=== PATIENT | female | born 1965 | race Caucasian/White ===

== ENCOUNTER 2016-06-13 09:51 | Day surgery (SDC) | payer BC ==
--- NOTE | 2016-06-07 18:24 | HP ---
HISTORY AND PHYSICAL: DATE OF ADMISSION/SURGERY: 06/13/16 DATE OF OFFICE VISIT: 06/07/16 SURGEON: Unique Carrington MD PROCEDURE: Left knee arthroscopy with partial medial meniscectomy, possible chondroplasty, and possible synovectomy. CHIEF COMPLAINT: Left knee pain. HISTORY OF PRESENT ILLNESS: Ms. Hubbard is a 50-year-old female with complaints of left knee pain. She has failed conservative management and has elected to proceed with left knee arthroscopy which is scheduled for 06/13/16. PAST MEDICAL HISTORY: Asthma, hypertension, sleep apnea, umbilical hernia. PAST SURGICAL HISTORY: Left oophorectomy, hysterectomy. CURRENT MEDICATIONS: 1. [place]. 2. Triamterene/hydrochlorothiazide. 3. Proventil. 4. Mag oxide. 5. Thyroid Support. 6. Turmeric. 7. Hair, skin, and nails. ALLERGIES: To EGGS. FAMILY HISTORY: Noncontributory. 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 She does not smoke, use drugs or alcohol. REVIEW OF SYSTEMS: A complete 14-point review of systems was reviewed with the patient. All was negative or noncontributory. She denies history of DVT, PE, anesthesia problems, or bleeding disorders. PHYSICAL EXAMINATION GENERAL: She is obese, in no acute distress. VITAL SIGNS: She stands 5 feet 3 inches tall, weighs 289 pounds, her blood pressure is 129/76, her heart rate is 64. HEENT: Normocephalic, atraumatic. NECK: Supple. No palpable lymph nodes. Trachea is midline. PULMONARY: Clear to auscultation bilaterally. No wheezes, rhonchi, or rales. CARDIO: Regular rate and rhythm. Strong S1, S2. No murmurs, gallops, or rubs. ABDOMEN: Soft, nontender, nondistended. NEUROLOGICAL: She is alert and oriented x3. Cranial nerves II through XII are intact. MUSCULOSKELETAL: Left knee: She walks with slightly antalgic-type gait favoring her left knee. The skin is intact. She has mild tenderness over the medial joint line. There is a mild effusion. She has intact lower extremity strength of 5/5, intact sensation, and 2+ dorsalis pedis pulses. ASSESSMENT AND PLAN: Ms. Hubbard is a 50-year-old female with complaints of left knee pain. She has failed conservative management and has elected to proceed with left knee arthroscopy with partial medial meniscectomy, possible chondroplasty, and possible synovectomy. The surgery is scheduled for 06/13/[address] Carrington. Percocet was sent to her pharmacy for postoperative pain control and Dr. Carrington would like to see her back in clinic in 10 to 14 days for a followup visit. DERECK DALE [id number]/[facility] #: [id number] MTDD
[~2016-06-13 09:51] MED LIST: Buffered Lidocaine 1% SYR 3ML* 3 ML/SYR SYRINGE INTRADERM ONE; Dexamethasone IV* 4 MG/ML 1 ML (4 MG) IV SLOW PU ONE; Famotidine IV* 10 MG/ML 2 ML (20 mg) IV ONE
[2016-06-13] MEDS ORDERED: ceFAZolin 2 GM PREMIX (*) 2 GM/50 ML BAG IVPB ONE (10:10)
[2016-06-13] MEDS ORDERED: ceFAZolin 1 GM in Dextrose (*) 1 GM/50 ML BAG IVPB ONE (10:10)
[2016-06-13] MEDS ORDERED: Famotidine IV* 10 MG/ML 2 ML (20 mg) ONE (10:10)
[2016-06-13] MEDS ORDERED: Dexamethasone IV* 4 MG/ML 1 ML (4 MG) ONE (10:10)
[2016-06-13] MEDS ORDERED: fentaNYL* 50 MCG/ML 2 ML VIAL (100 MCG VIAL) ONE (10:23)
[2016-06-13] MEDS ORDERED: Midazolam* 1 MG/ML 5 ML VIAL (5 MG) ONE (10:24)
[2016-06-13] MEDS ORDERED: methylPREDNISolone ACETATE 80* 80 MG/ML 1 ML VIAL ONE (10:25)
[2016-06-13] MEDS ORDERED: Bupivacaine 0.5% SDV PF* 30 ML VIAL ONE (10:25)
[2016-06-13] MEDS ORDERED: EPINEPHrine AMP 1 MG/ML ONE (10:25)
[2016-06-13] MEDS ORDERED: Lidocaine 2% PF * 5 ML VIAL ONE (10:28)
[2016-06-13] MEDS ORDERED: Propofol* 10 MG/ML 20 ML BTL IV PUSH ONE (10:28)
[2016-06-13] MEDS ORDERED: Ondansetron INJ* 2 MG/ML VIAL ONE (10:28)
[2016-06-13] MEDS ORDERED: Ketorolac INJ* 30 MG/ML 1 ML VIAL ONE (10:28)
[2016-06-13] MEDS ORDERED: HYDROmorphone INJ* 1 MG/ML CARPUJECT SYRINGE IV PRN (11:37)
[2016-06-13] MEDS ORDERED: PROCHLORPERAZINE INJ 5 MG/ML 2 ML VIAL IV PRN (11:37)
[2016-06-13] MEDS ORDERED: Ondansetron INJ* 2 MG/ML VIAL IV PRN (11:37)
[2016-06-13] MEDS ORDERED: DiMENhydriNATE IV* 50 MG/ML VIAL IV PUSH PRN (11:37)
[2016-06-13] MEDS ORDERED: Scopolamine 1.5 mg* PATCH TRANSDERM PRN (11:37)
[2016-06-13] MEDS ORDERED: fentaNYL* 50 MCG/ML 5 ML VIAL (250 MCG VIAL) ONE (13:25)
[2016-06-13] MEDS: fentaNYL* 50 MCG/ML 2 ML VIAL (100 MCG VIAL) IV PRN ×2 (13:28→13:44)
[2016-06-13] MEDS ORDERED: oxyCODONE/Acetamin 5/325 MG* TAB ONE (14:09)
[2016-06-13 14:31] VITALS: BP 139/82
--- NOTE | 2016-06-14 20:05 | OP ---
DATE OF OPERATION: 06/13/16 [facility] DATE OF : 69 ATTENDING SURGEON: Unique Carrington MD QUARTER SUPERVISOR: DERECK Soto ANESTHESIOLOGIST: Dr. Vipul Brown. ANESTHESIA: General. PRE-OP DIAGNOSES: Left knee medial meniscal tear, osteoarthritis. POST-OP DIAGNOSES: Left knee radial tear of the medial meniscus, moderate-to- severe arthritis of the medial and patellofemoral compartments. OPERATIVE PROCEDURE: Left knee arthroscopy with partial medial meniscectomy and medial chondroplasty. COMPLICATIONS: None. SPECIMEN: None. EBL: Less than 25 cc. BRIEF HISTORY/INDICATION: Ms. Hubbard is a 50-year-old female who injured her left knee around Thanksgiving with a twisting injury. She went on to fail conservative treatment with antiinflammatories, pain medication, physical therapy, brace wear, and intraarticular injection. Physical exam findings and history were consistent with a meniscal tear and a medial meniscal tear was confirmed on MRI. Due to continued pain and decreased quality of life, the patient elected to undergo left knee arthroscopy with partial medial meniscectomy. Informed consent was obtained from the patient. She understood the risks of the procedure included but were not limited to bleeding, infection , damage to nearby structures, continued pain, need for further surgery, stroke , heart attack, blood clot, and . She wished to proceed. INTRAOPERATIVE FINDINGS: Intraoperatively, the patient was noted to have a radial/complex tear of the mid portion of the posteromedial meniscus. This involved mainly the white-red zone with some involvement of the red-red as well. The patient had grade 3 and 4 Outerbridge cartilage changes of the medial femoral condyle with exposed subchondral bone along the weightbearing portion. She had grade 2 and 3 Outerbridge cartilage changes of the patellar cartilage with fissures, but no large amount of exposed subchondral bone. DESCRIPTION OF PROCEDURE: Ms. Hubbard was identified in the preanesthesia unit. Her left lower extremity was marked as the correct operative site. Informed consent was signed and placed in the chart. The patient was taken to the operating room and placed under general anesthesia without difficulty. Left lower extremity was prepped and draped in the usual sterile fashion. Preop time -out was made to correctly identify the patient's side and site. Appropriate perioperative antibiotics were given within 1 hour of incision. A 0.5 cm standard anterolateral portal incision was made with a 15-blade and carried down through the capsule. As soon as the trocar was introduced, the light and water sources were turned on. There was immediate visualization of the suprapatellar pouch. A tour of the knee joint was performed. Suprapatellar pouch had no obvious abnormality. Patellofemoral compartment showed some fissuring and fraying of the cartilage, which was grade 2 and 3 Outerbridge cartilage changes of the patella undersurface. Medial gutter showed no loose body or plica. Medial compartment showed exposed subchondral bone and significant cartilage flapping/fraying of the medial femoral condyle. These were grade 3 and 4 Outerbridge cartilage changes. Large complex radial- type tear of the medial meniscus was noted along the mid portion of the body. ACL appeared to be intact. The knee was placed in the [id number] position. Lateral compartment cartilage and meniscus were without significant abnormality. Lateral gutter showed no loose body or plica. Under direct visualization, a medial portal incision was made with a 15-blade. A probe was introduced and a second tour of the knee joint was performed. No additional findings were noted. Shaver and radiofrequency ablation wand were used to excise some anterior soft tissue for better visualization. Next, a straight biter and shaver were used to perform partial medial meniscectomy until a smooth border of the medial meniscus was obtained. Radiofrequency ablation wand was used to further smooth the inner edge of the meniscus. A probe was used to ensure there was no further tearing or displaced flaps along the medial meniscus and this was confirmed. ACL and PCL were intact upon probing. Radiofrequency ablation wand was used to smooth the edges of any cartilage flaps along the medial femoral condyle in a conservative fashion. Next, the shaver was placed in the suprapatellar pouch and the knee was copiously irrigated with sterile saline. All instruments were carefully removed. The incisions were closed using 3-0 nylon sutures. An intra-articular injection of 80 mg Depo-Medrol and 6 cc of 0.25% Marcaine was placed in the knee joint. The patient's incisions were covered using Xeroform, 4x4's, and Webril. Rahul wrap and cold pack were placed over this. The patient's anesthesia was reversed without difficulty. She was taken to the PACU in stable condition. Intended weightbearing will be weightbearing as tolerated. Intended DVT prophylaxis will be aspirin. Follow up in 2 weeks for suture removal. [id number]/[facility] #: [id number] XIANG
[2016-06-16] MEDS ORDERED: Scopolamine PATCH Remove* 1 NOTE MISC PATCH OFF ONE (11:38)
== END 2016-06-13 15:06 | disposition home or self-care (01) ==
LOC: OR 09:51
PROVIDERS: ATTEND Orthopaedic Surgery Adult Reconstructive Orthopaedic Surgery
DX: S83.242A Other tear of medial meniscus, current injury, left knee, initial encounter (principal); M17.12 Unilateral primary osteoarthritis, left knee; E66.01 Morbid (severe) obesity due to excess calories; G47.33 Obstructive sleep apnea (adult) (pediatric); J45.909 Unspecified asthma, uncomplicated; X50.0XXA Overexertion from strenuous movement or load, initial encounter; Y92.9 Unspecified place or not applicable
CPT/HCPCS: 36415; 86703; A9270-GY; J0171; J0690; J1040; J1100; J1885; J2250; J2405; J2704; J3010

== ENCOUNTER 2017-03-23 08:28 | Emergency (ER) | payer BC ==
[2017-03-23] MEDS ORDERED: Morphine INJ* 2 MG/ML 1 ML CARPUJECT IV ONE (09:04)
[2017-03-23] MEDS ORDERED: Ondansetron INJ* 2 MG/ML VIAL IV ONE (09:05)
--- NOTE | 2017-03-23 09:05 | ED ---
Abdominal Pain/Female - HPI Summary HPI Summary: 51 female presents to ED with complaints of RUQ pain that began around 0430 this morning. Patient states it woke her up from her sleep. States pain is starting to radiate into her right back. Pain was sharp and worse this morning, is dulled down but is still there. Has not moved. Admits to nausea and 4-5 episodes of vomiting. Admits to some diarrhea, no urinary or genitalia complaints. Denies blood. Denies known fever, but admits to chills. Has not taken any medication for the pain. Last ate and drink last night around 1630, had typical thanksgiving food. PMHx includes asthma and sleep apnea. Takes a "water pill" for intermittent b/l lower leg edema. No other complaints. Had ectopic years ago, no other abdominal surgeries. No family history of gallbladder disease. Admits to having an episode similar to this pain 3-5 weeks ago that spontaneously resolved. - History of Current Complaint Chief Complaint: EDAbdPain Stated Complaint: VOMITING/DIARRAH Time Seen by Provider: 03/23/17 08:43 Hx Obtained From: Patient ?: No Onset/Duration: Sudden Onset, Lasting Hours Timing: Constant Severity Initially: Severe Severity Currently: Moderate Pain Intensity: 8 Pain Scale Used: 0-10 Numeric Location: Discrete At: RUQ Radiates: Yes Radiates to: Back Character: Sharp, Dull Aggravating Factor(s): Other: - "laying, stretching out" Alleviating Factor(s): Nothing Associated Signs and Symptoms: Positive: Nausea, Vomiting, Diarrhea. Negative: Back Pain, Constipation, Blood in Stool, Urinary Symptoms Female Torso: 1 - pain Allergies/Adverse Reactions: Allergies Allergy/AdvReac Type Severity Reaction Status Date / Time Eggs or Egg-derived Products Allergy HIVES/VOMIT Verified 07/18/16 09:28 TING/DIARRH EA PMH/Surg Hx/FS Hx/Imm Hx Endocrine/Hematology History: Denies: Hx Diabetes, Hx Thyroid Disease Cardiovascular History: Denies: Hx Hypertension, Hx Pacemaker/ICD Respiratory History: Reports: Hx Asthma, Hx Sleep Apnea Denies: Hx Chronic Obstructive Pulmonary Disease (COPD) GI History: Denies: Hx Ulcer History: Denies: Hx Renal Disease Musculoskeletal History: Reports: Hx Arthritis - OSTEOARTHRITIS LEFT KNEE Sensory History: Reports: Hx Contacts or Glasses - GLASSES Denies: Hx Hearing Aid Opthamlomology History: Reports: Hx Contacts or Glasses - GLASSES Psychiatric History: Denies: Hx Panic Disorder - Surgical History Surgery Procedure, Year, and Place: hysterectomy and left fallopian tube removed and right ovary removed. MENISCUS REPAIR LEFT KNEE 06/13/16 Hx Anesthesia Reactions: No - Immunization History Immunizations Up to Date: Yes Infectious Disease History: No Infectious Disease History: Denies: Hx Hepatitis, Hx Human Immunodeficiency Virus (HIV), Traveled Outside the [place] in Last 30 Days - Family History Known Family History: Positive: None - Social History Alcohol Use: None Substance Use Type: Reports: None Smoking Status (MU): Never Smoked Tobacco Review of Systems Positive: Chills Cardiovascular: Negative Respiratory: Negative Positive: Abdominal Pain, Vomiting, Diarrhea, Nausea Genitourinary: Negative Musculoskeletal: Negative Skin: Negative All Other Systems Reviewed And Are Negative: Yes Physical Exam Triage Information Reviewed: Yes Vital Signs On Initial Exam: Initial Vitals Temp Pulse Resp BP Pulse Ox 97 F 63 17 144/79 98 03/23/17 08:37 03/23/17 08:37 03/23/17 08:37 03/23/17 08:37 03/23/17 08:37 Vital Signs Reviewed: Yes Appearance: Positive: Well-Appearing, Well-Nourished, Pain Distress - moderate Skin: Positive: Warm, Skin Color Reflects Adequate Perfusion, Dry. Negative: Cold, Cyanosis @, Jaundiced, Pale, Erythema @ Head/Face: Positive: Normal Head/Face Inspection Eyes: Positive: Conjunctiva Clear ENT: Positive: Hearing grossly normal, Pharyngeal erythema Neck: Positive: Supple, Nontender, No Lymphadenopathy Respiratory/Lung Sounds: Positive: Clear to Auscultation, Breath Sounds Present. Negative: Rales, Rhonchi, Wheezes Cardiovascular: Positive: Normal, RRR, Pulses are Symmetrical in both Upper and Lower Extremities. Negative: Murmur, Rub Abdomen Description: Positive: No Organomegaly, Soft, Distended, Other: - exquistely tender RUQ with palpation, + Jensen's sign, negative psoas and rovsings. Negative: Bruit, CVA Tenderness (R), CVA Tenderness (L), Guarding, McBurney's Point Tenderness, Peritoneal Signs Bowel Sounds: Positive: Present, Hypoactive Musculoskeletal: Positive: Normal, Strength/ROM Intact Neurological: Positive: Normal, Sensory/Motor Intact, Alert, Oriented to Person Place, Time Diagnostics - Vital Signs Vital Signs Temp Pulse Resp BP Pulse Ox 03/23/17 08:37 97 F 63 17 144/79 98 - Laboratory Result Diagrams: 03/23/17 09:33 03/23/17 10:30 Lab Statement: Any lab studies that have been ordered have been reviewed, and results considered in the medical decision making process. - Radiology abdomen Xray Interpretation: Positive (See Comments) - Based on correlation with the ultrasound of the same date the solitary RIGHT upper quadrant calcification is most consistent with a gallstone. Radiology Interpretation Completed By: Radiologist - Ultrasound No standard instances Ultrasound Interpretation: Positive (See Comments) - 1. Cholelithiasis with immobile stone at the gallbladder neck without compelling secondary findings to favor acute cholecystitis. 2. Borderline enlarged liver with fatty infiltration. Ultrasound Interpretation Completed By: Radiologist Re-Evaluation - Re-Evaluation First Eval Re-Evaluation Time: 10:04 Change: Improved - had some relief from medication, updated on imaging and labs Second Eval Re-Evaluation Time: 12:30 Change: Improved - still feeling ok, without pain, patient updated on plan and discussion with specialist. follow up with surgeon. d/c on pain and antemetic medication. patient competant and understands. all questions answered. Third Eval Re-Evaluation Time: 13:27 Change: Improved - updated on all results. ready to be d/c Abdominal Pain Fem Course/Dx - Course Course Of Treatment: labs, urinalysis and gallbladder ultrasound obtained. appears to be suffering from cholelithiasis with an immobile stone at gallbladder neck. labs and urinalysis unremarkable. xray obtained and negative other than gallstone. given morphine and zofran, had significant relief. last ate yesterday 03/22/17 around 1630. No other concerns at this time. Spoke with Dr Saenz who stated due to the location of the stone makes it difficult for further treatment, recommended running case by Dr Soto, general surgeon. Spoke with Dr Soto at 10:45am who stated depending on patients pain discuss admission versus outpatient follow up on Sunday03/26/17. Discussed patients lab and imaging results. Patient understands. Feeling much better. Monitored for 3 hour without pain returning and only after 2mg of morphine 1 hour ago. Decided she would go home and follow up on Sunday. Is aware of worsening signs and symptoms requiring return to ED (fever, increased pain etc). No concern for cholecystisis or cholangitis at this time due to lab results and physical exam findings. Does not require admission at this time. gave toradol before d/c. Follow up with Surgeon on Sunday along with PCP. Given zofran and pain medication to take only as needed for symptoms. - Diagnoses Differential Diagnosis: Positive: Constipation, Gall Bladder Disease, Pancreatitis, Renal Colic, Urinary Tract Infection Provider Diagnoses: Biliary colic, Cholelithiasis, Gallstone - Provider Notifications Discussed Care Of Patient With: Dr Charles Ochoa Time Discussed With Above Provider: 10:45 Instructed by Provider To: Have Pt Call For Appt. Discharge - Discharge Plan Condition: Stable Disposition: HOME Prescriptions: Ondansetron ODT TAB* [Zofran 4 MG Odt TAB*] 4 mg PO Q6H PRN #15 tab.odt PRN Reason: Nausea oxyCODONE/Acetamin 5/325 MG* [Percocet 5/325 TAB*] 1 tab PO Q6H PRN #15 tab MDD 3 PRN Reason: Pain Patient Education Materials: Biliary Colic (ED), Gallstones (ED) Referrals: Juan Kiser MD [Primary Care Provider] - Additional Instructions: Take medication as directed for pain and nausea, as needed. If pain worsens, becomes unbearable, you feel ill, having profuse vomiting, fever/chills or new symptoms please seek medical attention immediately. Follow up and make an appointment on Sunday with Surgeon. Avoid fatty, greasy, heavy foods. Maintain a light diet to refrain from worsening pain.
[2017-03-23] MEDS ORDERED: Morphine INJ* 2 MG/ML 1 ML SYRINGE (TWO MG - NEW SYRINGE VERSION) ONE (09:25)
[2017-03-23 09:56] LABS: Hematocrit 39 % (35-47); Hemoglobin 12.7 g/dl (12.0-16.0); Mean Corpuscular HGB Conc 33 g/dl (31-36); Mean Corpuscular Hemoglobin 28 pg (27-31); Mean Corpuscular Volume 86 fL (80-97); Mean Platelet Volume 9 um3 (7.4-10.4); Red Blood Count 4.54 10^6/ul (4.0-5.4); Red Cell Distribution Width 13 % (10.5-15); White Blood Count 8.5 10^3/ul (3.5-10.8)
--- NOTE | 2017-03-23 09:59 | RAD ---
Indication: RIGHT upper quadrant pain, nausea, vomiting for multiple hours. Comparison: No relevant prior exams available on the [facility] PACS for comparison. Technique: RIGHT upper quadrant ultrasound. Report: Appropriate direction flow documented in the portal and hepatic veins. 18.7 cm liver is increased in echogenicity. Negative for focal hepatic lesions. Negative for intrahepatic biliary dilatation. 2.8 mm common bile duct. Adequately distended bladder with normal 2.5 mm wall is remarkable for an immobile approximate 1.3 cm stone at the neck. Negative for pericholecystic fluid. Negative for sonographic Jensen's sign. The pancreatic tail is partially obscured due to bowel gas with the visualized pancreas unremarkable. Negative for ascites. 11.0 cm RIGHT kidney is unremarkable. IMPRESSION: 1. Cholelithiasis with immobile stone at the gallbladder neck without compelling secondary findings to favor acute cholecystitis. 2. Borderline enlarged liver with fatty infiltration.
[2017-03-23 10:02] LABS: Urine Bacteria Absent (Absent); Urine Bilirubin Negative (Negative); Urine Glucose Negative (Negative); Urine Nitrite Negative (Negative)
[2017-03-23 10:11] LABS: ALT 30 U/L (7-52); Albumin 3.9 g/dL (3.2-5.2); Alkaline Phosphatase 91 U/L (34-104); BUN/Creatinine Ratio 23.9 (8-20); Blood Urea Nitrogen 16 mg/dL (6-24); C Reactive Protein 14.76 mg/L (< 5.00); CO2 Carbon Dioxide 24 mmol/L (22-32); Calcium 9.8 mg/dL (8.6-10.3); Chloride 105 mmol/L (101-111); EGFR African American 120.3 (>60); EGFR Non-African American 93.6 (>60); Globulin 3.7 g/dL (2-4); Glucose 115 mg/dL (70-100); Lipase 30 U/L (11.0-82.0); Sodium 135 mmol/L (133-145); Total Protein 7.6 g/dL (6.4-8.9)
[2017-03-23 10:19] LABS: Anion Gap 6 mmol/L (2-11)
[2017-03-23 12:54] VITALS: BP 110/52
--- NOTE | 2017-03-23 13:19 | RAD ---
Indication: RIGHT upper quadrant pain radiating to the RIGHT flank. Associated vomiting. Assess for renal calculi. Comparison: RIGHT upper quadrant ultrasound of the same date. Technique: Supine view of the abdomen. Report: Unremarkable bowel gas pattern. Moderate stool in the colon without significant rectal distension. 0.5 cm subtle calcification at the RIGHT upper quadrant correlates with gallstone on ultrasound. No additional calcifications evident. Unremarkable soft tissue contours. IMPRESSION: Based on correlation with the ultrasound of the same date the solitary RIGHT upper quadrant calcification is most consistent with a gallstone.
[2017-03-23] MEDS ORDERED: Ketorolac INJ* 30 MG/ML 1 ML VIAL IV PUSH ONE (13:29)
== END 2017-03-23 14:02 | disposition home or self-care (01) ==
LOC: ED 08:28
DX: K80.50 Calculus of bile duct without cholangitis or cholecystitis without obstruction (principal); K80.20 Calculus of gallbladder without cholecystitis without obstruction; R10.11 Right upper quadrant pain; R11.2 Nausea with vomiting, unspecified; R19.7 Diarrhea, unspecified
CPT/HCPCS: 36415; 74020; 76705; 80053; 81003; 81015; 83605; 83690; 84702; 85025; 86140; 96374; 96375; 99283; J1885; J2270; J2405

== ENCOUNTER 2017-04-24 07:59 | Day surgery (SDC) | payer BC ==
[~2017-04-24 07:59] MED LIST changes: +Buffered Lidocaine 0.9% SYRIN* 5 ML/SYR SYRINGE INTRADERM ONE; -Buffered Lidocaine 1% SYR 3ML* 3 ML/SYR SYRINGE INTRADERM ONE; -Dexamethasone IV* 4 MG/ML 1 ML (4 MG) IV SLOW PU ONE; +Metoclopramide TAB* 10 MG PO ONE
[2017-04-24] MEDS ORDERED: ceFAZolin 2 GM PREMIX (*) 2 GM/50 ML BAG IVPB ONE (08:19)
[2017-04-24] MEDS ORDERED: Buffered Lidocaine 0.9% SYRIN* 5 ML/SYR SYRINGE ONE (08:19)
[2017-04-24] MEDS ORDERED: Metoclopramide TAB* 10 MG ONE (08:19)
[2017-04-24] MEDS ORDERED: Famotidine IV* 10 MG/ML 2 ML (20 mg) ONE (08:19)
[2017-04-24] MEDS ORDERED: fentaNYL* 50 MCG/ML 2 ML VIAL (100 MCG VIAL) ONE ×4 (08:43→13:45)
[2017-04-24] MEDS ORDERED: Ondansetron INJ* 2 MG/ML VIAL ONE ×2 (08:43→12:33)
[2017-04-24] MEDS ORDERED: Propofol* 10 MG/ML 20 ML BTL IV PUSH ONE ×2 (08:43→10:12)
[2017-04-24] MEDS ORDERED: Ketorolac INJ* 30 MG/ML 1 ML VIAL ONE (08:43)
[2017-04-24] MEDS ORDERED: Midazolam* 1 MG/ML 10 ML VIAL (10 MG) ONE (08:43)
[2017-04-24] MEDS ORDERED: Dexamethasone IV* 4 MG/ML 1 ML (4 MG) ONE (08:43)
[2017-04-24] MEDS ORDERED: Lidocaine 2% PF * 5 ML VIAL ONE (08:43)
[2017-04-24] MEDS ORDERED: Cisatracurium* 2 MG/ML MDV 5 ML ONE (08:43)
[2017-04-24] MEDS ORDERED: KETAMINE HCL* 50 MG/ML 10 ML VIAL ONE (08:43)
[2017-04-24] MEDS ORDERED: Bupivacaine 0.25% SDV* 30 ML ONE (10:52)
[2017-04-24] MEDS ORDERED: ceFAZolin 1 GM in Dextrose (*) 1 GM/50 ML BAG IVPB ONE (11:02)
[2017-04-24] MEDS ORDERED: Glycopyrrolate IV* 0.2 MG/ML 1 ML VIAL ONE (12:06)
[2017-04-24] MEDS ORDERED: Neostigmine Methylsulfate* 2 MG/2 ML SYRINGE ONE (12:06)
[2017-04-24] MEDS ORDERED: Ondansetron INJ* 2 MG/ML VIAL IV PRN (12:26)
[2017-04-24] MEDS ORDERED: oxyCODONE/Acetamin 5/325 MG* TAB PO PRN (12:26)
[2017-04-24] MEDS: fentaNYL* 50 MCG/ML 2 ML VIAL (100 MCG VIAL) IV PRN ×4 (12:43→14:08)
[2017-04-24] MEDS ORDERED: DiMENhydriNATE IV* 50 MG/ML VIAL ONE (13:39)
[2017-04-24 15:43] VITALS: BP 140/91
--- NOTE | 2017-04-25 04:38 | OP ---
CC: Juan Kiser MD * DATE OF OPERATION: 04/24/17 - [facility] DATE OF : 69 SURGEON: Osmel Pearl MD CRM ANALYST: DERECK Vang ANESTHESIOLOGIST: José Miguel Farooq MD ANESTHESIA: General endotracheal. PRE-OP DIAGNOSIS: Symptomatic gallstones. POST-OP DIAGNOSIS: Symptomatic gallstones. OPERATIVE PROCEDURE: Laparoscopic cholecystectomy. ESTIMATED BLOOD LOSS: Less than 10 mL. IV FLUIDS: Crystalloids. SPECIMENS: Gallbladder. DRAINS: None. COMPLICATIONS: None. COUNTS: Instrument, needle, and sponge counts were correct. DESCRIPTION OF PROCEDURE: The patient was brought to the operating room and placed on the table supine. Sequential compression devices were placed on both lower extremities. General anesthesia was administered. Appropriate intravenous antibiotic was administered. She was prepped and draped in the usual sterile fashion. Time-out was performed. Local anesthetic was infiltrated into the skin and soft tissue. Prior to making this incision, a transumbilical incision was created vertically using 5- mm optical trocar. Peritoneal cavity was accessed. Carbon dioxide was insufflated to a pressure of 15 mmHg. Under direct visualization, two 5 mm trocars were placed in the right upper quadrant and a 12-mm trocar was placed in the subxiphoid position. The patient's gallbladder was noted to have chronic inflammatory changes with adhesions to omentum with no acute inflammation noted. The fundus of the gallbladder was grasped and retracted cephalad. The peritoneum investing the gallbladder was incised with cautery along the medial and lateral aspects across the infundibulum and then the peritoneum was dissected free to expose the cystic artery and cystic duct. Critical view was obtained and the cystic duct was doubly cut and divided. Cystic artery was singly clipped and divided. The gallbladder was free from attachments to the liver bed using the cautery and staying in an avascular plane. Once the gallbladder was freed, it was placed into an endoscopic retrieval bag and retrieved through the subxiphoid port site. Inspection revealed hemostasis to be excellent. Clips were intact. Ports were removed under direct visualization. Carbon dioxide was released. The skin incisions were closed with 4- 0 Monocryl in subcuticular fashion. Steri-strips were applied. The patient tolerated the procedure well, was extubated and transferred to Recovery in stable condition. [id number]/[facility] #: [id number] [facility]
== END 2017-04-24 15:36 | disposition home or self-care (01) ==
LOC: OR 07:59
PROVIDERS: ATTEND Surgery
DX: K80.10 Calculus of gallbladder with chronic cholecystitis without obstruction (principal); R01.1 Cardiac murmur, unspecified; J45.909 Unspecified asthma, uncomplicated; E66.9 Obesity, unspecified; G47.33 Obstructive sleep apnea (adult) (pediatric)
CPT/HCPCS: 88304; A9270-GY; J0690; J1100; J1240; J1885; J2250; J2405; J2704; J3010